=== PATIENT | female | born 1940 | race Caucasian/White ===

== ENCOUNTER → 2018-08-03 08:43 | Outpatient (CLI) | payer MEDICARE, SELFPAY ==
[2018-07-30 09:52] VITALS: BMI 27.3
--- NOTE | 2018-08-03 08:46 | BI_ITS ---
MAMMOGRAPHY - UNILATERAL DIAGNOSTIC: LEFT BREAST REASON FOR EXAM: Female, 78 years old. Abnormal screening mammogram. Increased left retroareolar density. PERTINENT HISTORY: Aunt with breast cancer. TECHNIQUE: Digital unilateral breast alva (3D mammographic acquisition) in the CC and MLO projections. 2-D mediolateral oblique (MLO) and craniocaudad (CC) views of both breasts were obtained. CAD: Full Field Digital Mammography with Computer Added Detection was performed. COMPARISON: Comparison is made with prior abdomen examination dated January 19, 2019. FINDINGS: Breast Composition: The breasts are heterogeneously dense, which may obscure small masses. There are no dominant masses or suspicious calcifications. No other significant abnormalities are identified. There has been no significant change since the prior study. BI/DIAG MAMM W/CAD, UNILAT IMPRESSION: Stable unilateral diagnostic mammogram. Correlation with ultrasound is recommended for further evaluation. ASSESSMENT CATEGORY: Stable examination. Correlation with ultrasound is recommended. Approximately 10% of breast cancers are not detected by mammography. A normal mammogram should not delay biopsy of a clinically suspicious abnormality. Electronically Signed: Carlos Bill MD at 12:19 EST Tel [phone], Service support ,
--- NOTE | 2018-08-03 08:46 | US_ITS ---
STUDY: ULTRASOUND BREAST - LEFT REASON FOR EXAM: Female, 78 years old. Abnormal screening mammogram. TECHNIQUE: Axial and longitudinal images of the LEFT breast were performed with a high resolution ultrasound transducer. COMPARISON: Comparison is made with prior mammogram done earlier today. FINDINGS: LEFT Breast: There is a 5 mm x 4 mm x 4 mm cyst at the 1:00 position of the breast at 1 cm from the nipple. US/Breast Limited Unilateral IMPRESSION: 5 mm x 4 mm x 4 mm cyst at the 1:00 position of the breast at 1 cm from the nipple. ASSESSMENT CATEGORY: BIRADS Category 2: Benign. A letter regarding these results will be sent to the patient by the facility within 30 days. Electronically Signed: Carlos Bill MD at 12:20 EST Tel [phone], Service support ,
== END ==
PROVIDERS: Family Provider Family Medicine; PCP Family Medicine; Referring Provider Surgery; Visit Provider Surgery
DX: R92.8 Other abnormal and inconclusive findings on diagnostic imaging of breast (principal)
CPT/HCPCS: 76642; 77061; 77065; G0279